=== PATIENT | female | born 1960 | race Caucasian/White ===

== ENCOUNTER 2017-01-01 13:42 | Emergency (ER) | payer BC ==
[2017-01-01 14:07] VITALS: BP 138/85
--- NOTE | 2017-01-01 14:21 | EDM.PDOC ---
ED HPI GENERAL MEDICAL PROBLEM - General Chief Complaint: Gastrointestinal Problem Stated Complaint: MAYBE FOOD POSION Time Seen by Provider: 01/01/17 14:16 Source of Information: Reports: Patient History Limitations: Reports: No Limitations - History of Present Illness INITIAL COMMENTS - FREE TEXT/NARRATIVE: Bought raspberries afternoon and ate them for supper. Developed diarrhea about 7pm. Continues with diarrhea. Is yellow stools with significant odor. Has had 3 stools today so far. Vomited x 2. Denies fever or chills. Did eat lunch today. Onset: Sudden Onset Date: 12/28/16 Severity: Moderate Improves with: Reports: None Worsens with: Reports: Other (food) Context: Reports: Other (food intake) Associated Symptoms: Reports: No Other Symptoms - Related Data Allergies Allergy/AdvReac Type Severity Reaction Status Date / Time cefoxitin Allergy Redness Verified 01/01/17 14:01 erythromycin base Allergy Nausea Verified 01/01/17 14:01 [Erythromycin Base] hydromorphone HCl Allergy Vomiting Verified 01/01/17 14:01 [From Dilaudid] meperidine HCl [From Demerol] Allergy Hallucinati Verified 01/01/17 14:01 ons Home Meds: Home Meds Fexofenadine HCl [Norma] 180 mg PO DAILY 07/17/13 [History] Multivitamin [Multi-Vitamin Daily] 1 each PO DAILY 07/17/13 [History] Omeprazole [Prilosec] 40 mg PO DAILY 07/17/13 [History] fluvoxaMINE [Luvox] 100 mg PO DAILY 07/17/13 [History] Losartan/Hydrochlorothiazide [Hyzaar 100-25] 1 tab PO DAILY 06/10/15 [History] Potassium Chloride [Klor-Con 10] 10 meq PO DAILY 06/14/15 [History] Past Medical History HEENT History: Reports: Impaired Vision Cardiovascular History: Reports: Hypertension Other Respiratory History: tracheal stricture Genitourinary History: Reports: Other (See Below) Other Genitourinary History: solitario procedure [employer] History: Reports: - Past Surgical History Other HEENT Surgeries/Procedures: tracheal stricture-hx Other Respiratory Surgeries/Procedures: stricture dilated-removal of scar tissue GI Surgical History: Reports: Cholecystectomy, Other (See Below) Other GI Surgeries/Procedures: rectocele repair Female Surgical History: Reports: Hysterectomy, Other (See Below) Other Female Surgeries/Procedures: solitario procedure Musculoskeletal Surgical History: Reports: Knee Replacement Other Musculoskeletal Surgeries/Procedures:: replaced bilaterally Social & Family History - Tobacco Use Smoking Status *Q: Never Smoker Second Hand Smoke Exposure: No - Alcohol Use Days Per Week of Alcohol Use: 0 - Recreational Drug Use Recreational Drug Use: No ED ROS GENERAL - Review of Systems Review Of Systems: See Below Constitutional: Reports: No Symptoms HEENT: Reports: No Symptoms Respiratory: Reports: No Symptoms Cardiovascular: Reports: No Symptoms Endocrine: Reports: No Symptoms GI/Abdominal: Reports: Diarrhea, Vomiting Skin: Reports: No Symptoms ED EXAM, GI/ABD - Physical Exam Exam: See Below Exam Limited By: No Limitations General Appearance: Alert, WD/WN, No Apparent Distress Respiratory/Chest: No Respiratory Distress, Lungs Clear, Normal Breath Sounds, No Accessory Muscle Use, Chest Non-Tender Cardiovascular: Normal Peripheral Pulses, Regular Rate, Rhythm, No Edema, No Gallop, No JVD, No Murmur, No Rub GI/Abdominal: Normal Bowel Sounds, Soft, Non-Tender, No Organomegaly, No Distention, No Abnormal Bruit, No Mass Extremities: Normal Inspection, Normal Range of Motion, Non-Tender, Normal Capillary Refill, No Pedal Edema Neurological: Alert, Oriented, CN II-XII Intact, Normal Cognition, Normal Gait, Normal Reflexes, No Motor/Sensory Deficits Psychiatric: Normal Affect, Normal Mood Course - Vital Signs Last Recorded V/S: Last Vital Signs Temp 97.9 F 01/01/17 14:09 Pulse 85 01/01/17 14:09 Resp 15 01/01/17 14:09 BP 138/85 01/01/17 14:09 Pulse Ox 95 01/01/17 14:09 - Orders/Labs/Meds Orders: Active Orders 24 hr Category Date Time Status CLOSTRIDIUM DIFFICILE BY PCR [RM] Stat Lab 01/01/17 14:38 Received CULTURE STOOL + SHIGATOX [RM] Stat Lab 01/01/17 14:35 Received OVA AND PARASITES [MREF] Stat Lab 01/01/17 14:38 Received Labs: Laboratory Tests 01/01/17 01/01/17 Range/Units 14:36 14:36 WBC 6.0 (4.5-11.0) K/uL RBC 4.84 (3.30-5.50) M/uL Hgb 14.8 (12.0-15.0) g/dL Hct 44.6 (36.0-48.0) % MCV 92 (80-98) fL MCH 31 (27-31) pg MCHC 33 (32-36) % Plt Count 260 (150-400) K/uL Neut % (Auto) 59 (36-66) % Lymph % (Auto) 32 (24-44) % [place] % (Auto) 7 H (2-6) % Eos % (Auto) 1 L (2-4) % Baso % (Auto) 1 (0-1) % Sodium 143 (140-148) mmol/L Potassium 3.3 L (3.6-5.2) mmol/L Chloride 105 (100-108) mmol/L Carbon Dioxide 27 (21-32) mmol/L Anion Gap 14.3 H (5.0-14.0) mmol/L BUN 15 (7-18) mg/dL Creatinine 0.9 (0.6-1.0) mg/dL Est Cr Clr Drug Dosing 56.36 mL/min Estimated GFR (MDRD) > 60 (>60) Glucose 105 (74-106) mg/dL Calcium 9.0 (8.5-10.1) mg/dL Departure - Departure Time of Disposition: 15:02 Disposition: Home, Self-Care 01 Condition: good Clinical Impression: Viral gastroenteritis - Discharge Information Instructions: Viral Gastroenteritis, Adult, [id number] Forms: ED Department Discharge Additional Instructions: CBC indicates viral illness. Basic panel shows mild hypokalemia. Stool cultures and labs pending. Discussed high likelihood of viral cause for her symptoms. BRAT diet recommended. Increase fluids. We will call when other labs are back. Good handwashing to prevent spread to her . Followup if concerns about dehydration. - Problem List & Annotations (1) Viral gastroenteritis SNOMED Code(s): 400995628 Code(s): A08.4 - VIRAL INTESTINAL INFECTION, UNSPECIFIED Status: Acute Priority: Low Current Visit: Yes - My Orders Last 24 Hours: My Active Orders 01/01/17 14:35 CULTURE STOOL + SHIGATOX [RM] Stat 01/01/17 14:38 CLOSTRIDIUM DIFFICILE BY PCR [RM] Stat OVA AND PARASITES [MREF] Stat - Assessment/Plan Last 24 Hours: My Active Orders 01/01/17 14:35 CULTURE STOOL + SHIGATOX [RM] Stat 01/01/17 14:38 CLOSTRIDIUM DIFFICILE BY PCR [RM] Stat OVA AND PARASITES [MREF] Stat
== END 2017-01-01 15:47 | disposition home or self-care (01) ==
LOC: JP.ED 13:42
DX: A08.4 Viral intestinal infection, unspecified (principal); I10 Essential (primary) hypertension; Z90.49 Acquired absence of other specified parts of digestive tract; Z90.710 Acquired absence of both cervix and uterus; Z96.653 Presence of artificial knee joint, bilateral; Z79.899 Other long term (current) drug therapy; Z88.8 Allergy status to other drugs, medicaments and biological substances; Z88.1 Allergy status to other antibiotic agents; Z88.5 Allergy status to narcotic agent; Z88.6 Allergy status to analgesic agent
CPT/HCPCS: 36415; 80048; 85025; 87046; 87177; 87209; 87493; 87899; 89055; 99284